=== PATIENT | female | born 1985 ===

== ENCOUNTER 2020-01-21 13:15 | Inpatient (IN) | payer OTHER ==
[~2020-01-21] VITALS: Ht 157.5 cm; Wt 80.7 kg
[2020-02-02] MEDS ORDERED: ZOFRAN8 MG PO (05:48)
== END 2020-02-04 11:12 | disposition home or self-care (01) | DRG 807 ==
LOC: SURG-SUITE 02-02 05:15 → LDR 02-02 05:15 → SURG-SUITE 02-02 10:17 → SURH 02-06 13:15
PROVIDERS: ADMIT Obstetrics & Gynecology Maternal & Fetal Medicine; ATTEND Obstetrics & Gynecology Maternal & Fetal Medicine
PROC: 10E0XZZ Delivery of Products of Conception, External Approach (ICD-10-PCS; principal; 2020-02-02)
PROC: 0KQM0ZZ Repair Perineum Muscle, Open Approach (ICD-10-PCS; 2020-02-02)
PROC: 4A1HXCZ Monitoring of Products of Conception, Cardiac Rate, External Approach (ICD-10-PCS; 2020-02-02)
DX: O70.1 Second degree perineal laceration during delivery (principal); Z37.0 Single live birth; Z3A.39 39 weeks gestation of pregnancy; Z20.828 Contact with and (suspected) exposure to other viral communicable diseases

== ENCOUNTER 2022-09-22 09:26 | Outpatient (CLI) | payer OTHER ==
[~2022-09-22 09:26] MED LIST: ZOFRAN8 MG PO
== END 2022-09-22 09:50 | disposition home or self-care (01) ==
LOC: SONOGRAMA 09:26
PROVIDERS: ATTEND Pathology Anatomic Pathology & Clinical Pathology
DX: C73 Malignant neoplasm of thyroid gland (principal)

== ENCOUNTER 2022-11-16 14:56 | Inpatient (IN) | payer OTHER ==
[~2022-11-16] VITALS: Ht 157.5 cm; Wt 62.6 kg
== END 2022-11-22 10:51 | disposition home or self-care (01) | DRG 627 ==
LOC: O/R 11-21 06:00 → SURH 11-21 06:00 → SURG 11-21 08:00 → SURH 11-21 13:37
PROVIDERS: ADMIT Otolaryngology; ATTEND Otolaryngology
PROC: 0GTK0ZZ Resection of Thyroid Gland, Open Approach (ICD-10-PCS; principal; 2022-11-21 10:15)
DX: C73 Malignant neoplasm of thyroid gland (principal); Z20.822 Contact with and (suspected) exposure to COVID-19